=== PATIENT | female | born 1950 | race Caucasian/White ===

== ENCOUNTER → 2023-08-26 14:44 | Outpatient (REF) | payer MEDICARE, OTHER, SELFPAY | LOC: HWRAD 14:44 | PROVIDERS: ATTENDING PHYSICIAN Family Medicine | DX: R30.0 Dysuria (principal); R31.9 Hematuria, unspecified; R39.15 Urgency of urination | CPT/HCPCS: 74176 ==

== ENCOUNTER 2023-08-27 18:40 | Emergency (ER) | payer MEDICARE, OTHER, SELFPAY ==
[2023-08-27 18:42] VITALS: BP 190/97
--- NOTE | 2023-08-27 19:12 | ED.GENMED ---
Addendum entered and electronically signed by Chadwick العراقي MD 08/28/23 10:05:
I had asked the patient to call back concerning her antibiotic. She was prescribed Macrodantin. Although I highly doubt an infectious issue, I would feel safer having her on broader coverage. Omnicef was sent in. I also noted that I had not
given her the phone number of the urologist. This was given over the phone. Patient with no septic symptoms at home. Will follow-up closely
Original Note:
History of Present Illness
General
Chief Complaint: Flank Pain
Source: patient
Exam Limitations: none
Time Seen by Provider: 08/27/23 18:58
Travel History
Have you had any contact with someone who has COVID-19?: No
Do you have any symptoms of coronavirus? Fever > 100 degrees, chills, cough, shortness of breath, sore throat, loss of taste or smell, muscle aches, or headache?: No
History of Present Illness
History of Present Illness:
Patient with some hematuria over the last few days. Saw her primary physician. Labs were sent. Started on antibiotics for the possibility of UTI. No fever or chills however. No pain until today when she developed left flank pain that radiates
around. Pain is mild but ongoing in nature. No preceding pain management
Past History
Past History
ED Past Medical History: HTN and Hypercholesterolemia
Review of Systems
Review of Systems
All Other Systems: Not applicable
Constitutional: Denies fever or chills
Respiratory: Reports no symptoms
Cardiac: Reports no symptoms
Phy Exam
Physical Exam
Physical Exam:
GENERAL: Alert and oriented in no apparent distress
EYE: Orbits normal.
NECK: Supple
CARDIAC: Regular rate and rhythm without any obvious murmurs.
LUNGS: Clear breath sounds,normal
ABDOMEN: Soft, without focal tenderness or distention. No CVA tenderness
NEUROLOGICAL: Alert and oriented , grossly non-focal
SKIN: Warm and dry, no rash or lesion, no discoloration, skin intact.
MUSCULOSKELETAL: No edema,no deformity.Good color
PSYCH: Normal and appropriate interaction.
Course
Orders/Labs/Results
Orders:
Orders
08/27/23 19:10
IV Insert/Care/Rem.- Treatment PRN
0.9% Sodium Chloride 500 ml [Nss] 500 ml IV BOLUS
Ketorolac [Toradol] 15 mg IV NOW STA
08/27/23 19:24
Basic Metabolic Panel Urgent
Complete Blood Count/With Diff Urgent
08/27/23 20:39
Urinalysis Reflex To Culture Urgent
Date Specimen was Collected: 08/27/23
Time Specimen was Collected: 20:12
Urine Microscopic Reflex Cult Urgent
Urine Culture Urgent
GIANCARLO Source: U
Specimen Description:
Date Specimen was Collected: 08/27/23
Time Specimen was Collected: 20:12
08/27/23 21:48
CefTRIAXone [Rocephin] 1,000 mg IV NOW STA
Abnormal Lab Results
08/27/23 08/27/23
19:24 20:39
Hct 36.4 L %
(37.0-47.0)
MPV 10.8 H fL
(7.4-10.4)
Absolute Neuts (auto) 6.7 H 10^3/uL
(1.4-6.5)
BUN 21 H mg/dl
(7-17)
Creatinine 1.1 H mg/dL
(0.6-1.0)
Glucose 118 H mg/dl
(70-99)
Urine Ketones Trace A
(Negative)
Ur Occult Blood Reflex 4+ A
(Negative)
Leukocyte Esterase Rfl 2+ A
(Negative)
Urine RBC 80-90 A /HPF
(0-2)
Urine WBC (Reflex) 11-15 A /HPF
(0-5)
Urine Bacteria (Reflex) Moderate A
(Negative)
Urine Yeast Few A
(Negative)
08/27/23 19:24
08/27/23 19:24
Vital Signs
Initial and Last Documented VS:
Initial Vital Signs
Temp Pulse Resp BP Pulse Ox
98.9 F 101 22 190/97 99
08/27/23 18:42 08/27/23 18:42 08/27/23 18:42 08/27/23 18:42 08/27/23 18:42
Last Documented Vital Signs
Temp Pulse Resp BP Pulse Ox
98.9 F 101 22 166/74 99
08/27/23 18:42 08/27/23 18:42 08/27/23 18:42 08/27/23 19:34 08/27/23 18:42
*Radiology
Radiology exam reviewed: radiology read reviewed (CT scan done yesterday shows a 3 mm left UPJ stone large bladder stone)
*Pulse Oximetry
Patient hypoxic: no
*Critical Care Note
Total Time (30-74mins, 75-104mins- exclusive of procedures): Not Applicable
Data Reviewed
Review of Other/Old Records Reveals: Radiology Studies (3 mm stone left UPJ. Incidental intrarenal stones and cysts. Bladder stone)
Update Note
Update Note:
2144.... Patient very nontoxic in no distress. No infectious symptoms. No fever or chills. Urine likely contaminated. However we will cover with a dose of Rocephin until we are clear on her antibiotic choices. Urology texted for follow-up.
Patient will call me in the morning about her antibiotics she is on at home.
ED Attending Note
-
Portions of this chart may have been created with voice recognition software.� Occasional wrong word or��sound alike� substitutions may have occurred due to the inherent limitations of voice recognition software.
Discharge Plan
Departure
Patient Disposition: Home (Routine Discharge)
Date of Disposition: 08/27/23
Time of Disposition: 21:49
Patient with high blood pressure during this ER visit?: Yes
Discharge Problem:
3 mm left obstructing kidney stone
Instructions: Kidney Stones (DC), BLOOD PRESSURE
Prescriptions:
New
tamsulosin [Flomax] 0.4 mg capsule
0.4 mg PO DAILY Qty: 14 0RF
Referrals:
Uli Mckeon MD [Family Provider] -
Activity Restrictions/Additional Instructions:
Advil or Motrin for pain
You could also add Tylenol
As we discussed, stay hydrated although there is no advantage to overhydration
Start Flomax. This prescription was sent to your pharmacy
Call me in the morning about your current antibiotics
Call urology Tuesday
Return immediately with intractable pain or any infectious symptoms, as we discussed
Interventions
Interventions:
*Risk Screen - Suicide Last Done: 08/27/23 18:44
*General Assessment Last Done: 08/27/23 18:44
*Neglect/Abuse Screening Last Done: 08/27/23 18:44
ED- Fall Risk Assessment Last Done: 08/27/23 21:11
NO-Lkcisa-Ouphjtpehy Assessment Last Done: 08/27/23 21:11
ED-Female Genitourinary Assessment Last Done: 08/27/23 21:11
Discharge Date and Time
Print Language: COLOMBIAN
[2023-08-27 19:31] VITALS: BMI 28.1
[2023-08-27] MEDS: NSS 500 IV (19:33)
[2023-08-27] MEDS: TORADOL 15 MG IV (19:33)
[2023-08-27 19:34] VITALS: BP 166/74
[2023-08-27 19:42] LABS: % Basophils 0.7 % (0-2); % Eosinophils 0.8 % (0-6); % Immature Granulocytes 0.4 % (0-0.5); % Lymphocytes 27.4 % (20.5-51.1); % Neutrophils 64.7 % (42.2-75.2); Absolute Basophils 0.1 10^3/uL (0-0.2); Absolute Eosinophils 0.1 10^3/uL (0-0.7); Absolute Lymphocytes 2.8 10^3/uL (1.2-3.4); Absolute Monocytes 0.6 10^3/uL (0.1-0.6); Absolute Neutrophils 6.7 10^3/uL (1.4-6.5); Hematocrit 36.4 % (37.0-47.0); Hemoglobin 12.6 g/dL (12.0-16.0); Mean Corp Hgb Conc. 34.6 g/dL (33.0-37.0); Mean Corpuscular Hgb 29.9 pg (27.0-31.0); Mean Corpuscular Volume 86.5 fL (81.0-99.0); Mean Platelet Volume 10.8 fL (7.4-10.4); Nucleated Red Blood Cells % 0 %; Platelet Count 292 10^3/uL (130-400); Red Blood Cell Count 4.21 10^6/uL (4.20-5.40); Red Cell Dist. Width 12.6 % (11.5-14.5); White Blood Cell Count 10.3 10^3/uL (4.8-10.8)
[2023-08-27 19:54] LABS: Blood Urea Nitrogen 21 mg/dl (7-17); Calcium 9.2 mg/dl (8.4-10.2); Carbon Dioxide 27 mmol/L (22-30); Chloride 105 mmol/L (98-107); Estimated Creatinine Clearance 42 ml/min; Glucose 118 mg/dl (70-99); Potassium 4.1 mmol/L (3.5-5.1); Sodium 137 mmol/L (135-145)
[2023-08-27 20:49] LABS: Urine Albumin Trace (Neg - Trace); Urine Bilirubin Negative (Negative); Urine Character Clear (Clear); Urine Color Yellow; Urine Glucose Negative (Negative); Urine Ketone Trace (Negative); Urine Leukocyte 2+ (Negative); Urine Nitrite Negative (Negative); Urine Occult Blood 4+ (Negative); Urine Urobilinogen Negative (Neg - 1+)
[2023-08-27 21:06] LABS: Urine Squamous Cell >30 /LPF (Few)
[2023-08-27 21:08] LABS: Urine Bacteria Moderate (Negative); Urine Red Blood Cell 80-90 /HPF (0-2)
[2023-08-27 21:09] LABS: Urine Yeast Few (Negative)
[2023-08-27] MEDS: ROCEPHIN 1000 MG IV (21:52)
== END 2023-08-27 22:21 | disposition home or self-care (01) ==
LOC: EMR 18:40
PROVIDERS: EMERGENCY PHYSICIAN Emergency Medicine; FAMILY PHYSICIAN Family Medicine
DX: N20.0 Calculus of kidney (principal); I10 Essential (primary) hypertension
CPT/HCPCS: 99284; 96374; 96375; 96361; 80048; 81003; 81015; 85025; 87086

== ENCOUNTER → 2023-12-27 15:27 | Outpatient (REF) | payer MEDICARE, OTHER, SELFPAY | LOC: HWRAD 15:27 | PROVIDERS: ATTENDING PHYSICIAN Family Medicine | DX: Z87.442 Personal history of urinary calculi (principal); R10.9 Unspecified abdominal pain | CPT/HCPCS: 74176 ==

== ENCOUNTER → 2024-01-19 07:30 | Outpatient (REF) | payer MEDICARE, OTHER, SELFPAY | LOC: CLAB 07:30 | PROVIDERS: ATTENDING PHYSICIAN Surgery | DX: N13.2 Hydronephrosis with renal and ureteral calculous obstruction (principal); N21.0 Calculus in bladder; N20.0 Calculus of kidney | CPT/HCPCS: 88307 ==

== ENCOUNTER → 2024-03-02 09:41 | Outpatient (REF) | payer MEDICARE, OTHER, SELFPAY ==
[2024-03-02 10:57] LABS: Hematocrit 40.8 % (37.0-47.0); Hemoglobin 13.1 g/dL (12.0-16.0); Mean Corp Hgb Conc. 32.1 g/dL (33.0-37.0); Mean Corpuscular Volume 90.3 fL (81.0-99.0); Mean Platelet Volume 11.6 fL (7.4-10.4); Platelet Count 328 10^3/uL (130-400); Red Blood Cell Count 4.52 10^6/uL (4.20-5.40); Red Cell Dist. Width 12.6 % (11.5-14.5); White Blood Cell Count 7.7 10^3/uL (4.8-10.8)
[2024-03-02 11:36] LABS: Blood Urea Nitrogen 27 mg/dl (7-17); Calcium 9.5 mg/dl (8.4-10.2); Carbon Dioxide 28 mmol/L (22-30); Chloride 103 mmol/L (98-107); Glucose 106 mg/dl (70-99); Potassium 4.7 mmol/L (3.5-5.1); Sodium 140 mmol/L (135-145); eGFR > 60.00
== END ==
LOC: SDSPAT 09:41
PROVIDERS: ATTENDING PHYSICIAN Surgery; FAMILY PHYSICIAN Family Medicine
DX: Z01.818 Encounter for other preprocedural examination (principal)
CPT/HCPCS: 36415; 80048; 85027; 93005

== ENCOUNTER 2024-03-19 06:38 | Day surgery (SDC) | payer MEDICARE, OTHER, SELFPAY ==
[2024-03-02 11:08] VITALS: BMI 26.6
[2024-03-19 10:27] VITALS: BP 189/109; BMI 26.6
--- NOTE | 2024-03-19 11:36 | W.SUR.PREOP ---
Pre-Operative Surgical Note
-
I have examined this patient prior to the performance of the scheduled procedure.
The patient's condition is unchanged from the time of the current History and
Physical and the patient is able to undergo the scheduled procedure.
[2024-03-19 13:35] VITALS: BP 131/74; BP 189/109
[2024-03-19 13:45] VITALS: BP 137/66
--- NOTE | 2024-03-19 13:45 | W.IMMPOSTOP ---
Surgical Immed Post Op Note
-
Primary Surgeon: Song
Pre-op Diagnosis: HG applications trainer bladder cancer, left renal stones, large bladder stone (>2.0 cm)
Post-op Diagnosis: Same
Procedure Performed: cystoscopy, left URS/stent exchange, laser and bugbee fulguration of urothelium, cystolitholapaxy (complicated)
Anesthesia Type: LMA
Specimen / Cultures: None/None
Estimated Blood Loss: Negligible
Drains: 7Fr x 22 cm JJ left ureteral stent
Complications: None
Operative Findings: Final KUB and cystoscopy confirming appropriate left ureteral stent position, no obvious tumor recurrence or residual disease - resection site fulgurated, excellent hemostasis in no flow, low pressure state.
[2024-03-19 14:06] VITALS: BP 131/55
[2024-03-19 14:30] VITALS: BP 129/68
[2024-03-19] MEDS: Pyridium 200 MG PO (14:30)
[2024-03-19] MEDS: DETROL LA 4 MG PO (14:30)
== END 2024-03-19 14:51 | disposition home or self-care (01) ==
LOC: SDS 06:38
PROVIDERS: ATTENDING PHYSICIAN Surgery; FAMILY PHYSICIAN Family Medicine
DX: C67.9 Malignant neoplasm of bladder, unspecified (principal); N20.0 Calculus of kidney; N21.0 Calculus in bladder
CPT/HCPCS: 52318; 52332; 74018; 76000; A4300; C1758; C1769; C1894; C2617

== ENCOUNTER → 2024-04-19 08:45 | Outpatient (REF) | payer MEDICARE, OTHER, SELFPAY | LOC: CLAB 08:45 | PROVIDERS: ATTENDING PHYSICIAN Surgery | DX: N13.2 Hydronephrosis with renal and ureteral calculous obstruction (principal); N20.0 Calculus of kidney; N21.0 Calculus in bladder; C67.9 Malignant neoplasm of bladder, unspecified | CPT/HCPCS: 88305 ==